=== PATIENT | male | born 1970 | race Caucasian/White ===

== ENCOUNTER 2019-06-17 10:15 | Emergency (ER) | payer OTHER | END 2019-06-17 13:52 | disposition home or self-care (01) | LOC: FER 10:15 ==

== ENCOUNTER 2019-07-07 08:41 | Emergency (ER) | payer OTHER ==
--- NOTE | 2019-07-07 08:46 | PDOC ---
History of Present Illness - General Chief Complaint: Shortness of Breath Stated Complaint: cough Time Seen by Provider: 07/07/19 08:46 History Source: Patient Exam Limitations: No Limitations - History of Present Illness Initial Comments: 07/07/19 08:47 Mr Arechiga is a 48 yo M h/o liver cirrhosis 2/2 alcohol abuse, s/p doner liver transplant on Cyclosporine on Nov 23, 2015 c/b biliary duct stenosis and stenting, pancreatitis. Previous history of fluid overloading, b/l pleural effusion s/p RVATS and pleurodesis on 12/13/14, hernia repair in 2016 . He presents today with a complaint of cough Pt reports that he began having a cough 5 days ago, Fever of 101 4 days ago He rested and actually began to feel a bit better However, yesterday, he began to have shortness of breath He describes a feeling of chest tightness and an inability to take a full breath , his breathing feels "Restricted" Since his transplant, he has had recurrent pulmonary infections His most recent infection was 4-5 weeks ago (treated with doxy and albuterol) No recent travel No ill contacts No arthropod bites Past Medical History: as documented in EMR/HPI Social history: Lives with family. No tobacco, ETOH or drug use. Surgical history: as documented in EMR - liver transplant, biliary stent, VATS, umbilical hernia Meds: as documented in EMR Allergies: latex, ambien, Prograf/Cellcept --> "I went crazy, I could not move my legs" Family history: noncontributory PMD: Dr Aleman Wood Mechanist: Dr Wood/Liz ([facility]) 07/07/19 09:06 ROS: GENERAL/CONSTITUTIONAL: Yes: fever No: chills, weakness HEAD, EYES, EARS, NOSE AND THROAT: No: change in vision, ear pain, discharge, sore throat, throat swelling. CARDIOVASCULAR: No: chest pain, lightheadedness, palpitations, syncope RESPIRATORY: Yes: shortness of breath, wheezing, cough No:hemoptysis, stridor. GASTROINTESTINAL: No: nausea, vomiting, diarrhea, abdominal pain GENITOURINARY: No: dysuria, hematuria, frequency, urgency, flank pain. MUSCULOSKELETAL: No: back pain, myalgias, arthralgias SKIN: No: rash or easy bruising. NEUROLOGIC: No: headache, vertigo, paresthesias, weakness ENDOCRINE: No: unexplained weight gain or loss HEMATOLOGIC/LYMPHATIC: No: anemia, easy bleeding, swelling nodes. PE: GENERAL: The patient is in no acute distress. HEAD: Normal EYES: PERRLA, EOMI, sclera anicteric, conjunctiva clear. ENT: Ears normal, nares patent, oropharynx clear without exudates. Moist mucous membranes. NECK: Normal range of motion, supple without lymphadenopathy LUNGS: Rhonchi, Wheezing in all lung corona on expiration HEART:Regular rate and rhythm, normal S1 and S2 without murmur ABDOMEN: Soft, nontender, normoactive bowel sounds. No guarding, no rebound. EXTREMITIES: Normal range of motion, no edema. NEUROLOGICAL: Cranial nerves II through XII grossly intact. Normal speech. No focal neurological deficits. MUSCULOSKELETAL: Back non-tender to palpation SKIN: Right upper arm, 2 circular bruises noted Past History - Past Medical History Allergies/Adverse Reactions: Allergies Allergy/AdvReac Type Severity Reaction Status Date / Time latex Allergy Verified 06/17/19 10:23 zolpidem tartrate Allergy Verified 06/17/19 10:23 [From Ambien] LATEX BANDAGES Allergy Mild BURNING Uncoded 06/17/19 10:23 SENSATION Home Medications: Ambulatory Orders Amlodipine Besylate [Norvasc -] 10 mg PO HS 06/17/19 Aspirin [ASA -] 325 mg PO DAILY 06/17/19 Cyclosporine [Sandimmune (Nf)] 125 mg PO BID 06/17/19 Hydralazine HCl 25 mg PO BID 06/17/19 Pantoprazole Sodium [Protonix] 40 mg PO DAILY 06/17/19 Pravastatin Sodium 10 mg PO HS 06/17/19 Ursodiol [Actigall] 300 mg PO TID 06/17/19 Albuterol 0.083% Nebulizer Fiona [Ventolin 0.083% Nebulizer Soln -] 1 neb NEB Q6H #30 vial 07/07/19 Doxycycline Hyclate [Vibramycin -] 100 mg PO BID #20 capsule 07/07/19 Nebulizer and Compressor [[place] Choice Nebulizer] 1 each MC TID PRN #1 each 02/19 HTN: No Liver Disease: Yes (CIRRHOSIS) - Surgical History Abdominal Surgery: Yes (PYLORIC STENOSIS BABY,UMB.HERNIA) - Suicide/Smoking/Psychosocial Hx Smoking History: Never smoked Have you smoked in the past 12 months: No Number of Cigarettes Smoked Daily: 0 Hx Alcohol Use: Yes (last drink may 2014) Drug/Substance Use Hx: Yes Substance Use Type: Cocaine Hx Substance Use Treatment: No ED Treatment Course - LABORATORY CBC & Chemistry Diagram: 07/07/19 11:06 07/07/19 11:06 Medical Decision Making - Medical Decision Making 07/07/19 09:15 48 yo M h/o cirrhosis s/p liver transplantation on Cyclosporine presenting with a cough and wheezing x 5 days Fever was 4 days ago DD: Bronchitis, Pneumonia, Asthma/reactive airways, Pleural effusion, Will do: CXR Albuterol neb Will contact pt service parts coordinator - [employer] 07/07/19 09:46 Returned from X ray Decreased rhonchi and wheezing Continues to feel tight Will give another Albuterol 07/07/19 10:36 CXR - nml After 2nd neb, pt states he feels better Lung examination continues to reveal expiratory rhonchi in the RLL Will give Doxy Will order neb machine and Albuterol (pt states MDI is not helping) 07/07/19 10:39 Case reviewed with [employer] Was last seen in April At that time TBili was a little high (1.6) Had MRCP that was nml LFTs nml Agreed with Doxy and Neb Laboratory Tests 07/07/19 07/07/19 07/07/19 11:06 11:06 11:06 WBC 2.4 L Hgb 12.9 Hct 38.8 Plt Count 165 BUN 20.0 H Creatinine 1.1 Total Bilirubin 1.0 AST 41 H ALT 39 Lipase 225 Pt service parts coordinator asked that patient come in to their offices to see them Pt will be doing this He was given copies of his labs and x ray Clinical impression: bronchitis, initial presentation *DC/Admit/Observation/Transfer Diagnosis at time of Disposition: Cough - Discharge Dispostion Disposition: HOME Condition at time of disposition: Stable Decision to Admit order: No - Prescriptions Prescriptions: Albuterol 0.083% Nebulizer Fiona [Ventolin 0.083% Nebulizer Soln -] 1 neb NEB Q6H #30 vial Doxycycline Hyclate [Vibramycin -] 100 mg PO BID #20 capsule Nebulizer and Compressor [[place] Choice Nebulizer] 1 each MC TID PRN #1 each PRN Reason: Wheezing - Referrals - Patient Instructions Printed Discharge Instructions: DI for Cough -- Adult, DI for Acute Bronchitis Additional Instructions: Mr. Arechiga Thank you for coming in to the ER Your xray did not obviously show a pneumonia but your lung examination and the cough suggests an infection Therefore, we will start antibiotics Please monitor for fevers Please be sure to follow up with your service parts coordinator If you worsen - high fevers, worsening shortness of breath, please come back and see us in the ER - Post Discharge Activity
[2019-07-07] MEDS ORDERED: ALBUTEROL SO4 0.083% IH SOL 2.5 MG/3 ML VIAL.NEB. NEB ONE ×4 (09:03→10:01)
[2019-07-07 09:14] VITALS: BP 143/93; PULSE 101; TEMP 98.7; BMI 38.5
[2019-07-07 11:29] LABS: HEMATOCRIT 38.8 % (35.4-49); HEMOGLOBIN 12.9 GM/dl (11.7-16.9); MCH 32.7 pg (25.7-33.7); MCHC 33.3 g/dl (32.0-35.9); MEAN CELL VOLUME 98.2 fl (80-96); MEAN PLT VOLUME 7.5 fl (7.5-11.1); PLATELET COUNT 165 K/MM3 (134-434); RBC 3.95 M/mm3 (4.00-5.60); RDW 13.1 % (11.9-15.9); WHITE BLOOD COUNT 2.4 K/mm3 (4.0-10.8)
[2019-07-07 11:37] LABS: ALBUMIN 3.9 g/dl (3.4-5.0); CALCIUM 8.9 mg/dl (8.5-10); CREATININE 1.1 mg/dl (0.55-1.3); POTASSIUM 3.9 mmol/L (3.5-5.1); TOT PROT 7.5 g/dl (6.4-8.2)
[2019-07-07 13:18] LABS: PLATELET ESTIMATE ADEQUATE
== END 2019-07-07 12:11 | disposition home or self-care (01) ==
LOC: FER 08:41
PROC: 3E0F7GC Introduction of Other Therapeutic Substance into Respiratory Tract, Via Natural or Artificial Opening (ICD-10-PCS; principal; 2019-07-07)
DX: R05 Cough (principal); Z94.4 Liver transplant status; K74.60 Unspecified cirrhosis of liver
CPT/HCPCS: 36415; 71046-TC-FY; 80053; 83690; 85025; 94640; 99282-25

== ENCOUNTER 2019-08-12 10:20 | Emergency (ER) | payer OTHER ==
[2019-08-12 10:29] VITALS: BMI 39.5
--- NOTE | 2019-08-12 11:29 | PDOC ---
Attending Attestation - Resident Resident Name: JimenezTrey - ED Attending Attestation I have performed the following: I have examined & evaluated the patient, The case was reviewed & discussed with the resident, I agree w/resident's findings & plan, Exceptions are as noted - HPI HPI: 08/14/19 21:35 Patient complains of productive cough and low-grade fever. He is status post liver transplant for cirrhosis, thought due to alcohol abuse, and is maintained on cyclosporine. - Physicial Exam PE: 08/14/19 21:35 Physical exam: Low-grade fever, otherwise vital signs stable. Specifically, respiratory rate is normal, respirations are unlabored, and oxygen saturation is normal. Alert and oriented well-developed nourished in no acute distress. HEENT is clear Lungs are clear to auscultation CV regular without murmur rub or gallop Abdomen soft nontender without mass organomegaly Extremities no CCE. Skin without lesions or sign of infection. Neurological intact CBC, chemistries, chest x-ray without significant abnormalities - Medical Decision Making 08/14/19 21:37 Assessment: Rule out pneumonia and immunocompromise patient Plan: Chest x-ray is clear. CBC and chemistries without significant abnormality. Symptomatic treatment and close follow-up as recommended.
--- NOTE | 2019-08-12 11:35 | PDOC ---
History of Present Illness - General Chief Complaint: Respiratory Stated Complaint: COUGH, FEVER Time Seen by Provider: 08/12/19 11:11 Past History - Past Medical History Allergies/Adverse Reactions: Allergies Allergy/AdvReac Type Severity Reaction Status Date / Time latex Allergy Verified 08/12/19 10:21 tacrolimus Allergy Verified 08/12/19 10:21 zolpidem tartrate Allergy Verified 08/12/19 10:21 [From Ambien] LATEX BANDAGES Allergy Mild BURNING Uncoded 08/12/19 10:21 SENSATION Home Medications: Ambulatory Orders Amlodipine Besylate [Norvasc -] 10 mg PO HS 06/17/19 Aspirin [ASA -] 325 mg PO DAILY 06/17/19 Cyclosporine [Sandimmune (Nf)] 125 mg PO BID 06/17/19 Hydralazine HCl 25 mg PO BID 06/17/19 Pantoprazole Sodium [Protonix] 40 mg PO DAILY 06/17/19 Pravastatin Sodium 10 mg PO HS 06/17/19 Ursodiol [Actigall] 300 mg PO TID 06/17/19 Cholecalciferol (Vitamin D3) [Vitamin D3] 3,000 unit PO DAILY 08/12/19 [place]-3/Dha/Epa/Fish Oil [Fish Oil 1,000 mg Softgel] 1 each PO DAILY 08/12/19 COPD: No HTN: No Hypercholesterolemia: Yes Liver Disease: Yes (CIRRHOSIS) Other medical history: VACA'S SYNDROME - Surgical History Abdominal Surgery: Yes (PYLORIC STENOSIS BABY,UMB.HERNIA, LIVER TRANSPLANT) - Psycho Social/Smoking Cessation Hx Smoking History: Never smoked Have you smoked in the past 12 months: No Number of Cigarettes Smoked Daily: 0 Information on smoking cessation initiated: No Hx Alcohol Use: Yes (last drink may 2014) Drug/Substance Use Hx: Yes Substance Use Type: Cocaine Hx Substance Use Treatment: No *Physical Exam - Vital Signs Last Vital Signs Temp Pulse Resp BP Pulse Ox 101.6 F H 94 H 18 126/91 98 08/12/19 10:20 08/12/19 10:20 08/12/19 10:20 08/12/19 10:20 08/12/19 10:20 ED Treatment Course - LABORATORY CBC & Chemistry Diagram: 08/12/19 12:00 08/12/19 12:00 Medical Decision Making - Medical Decision Making 08/12/19 12:26 49M h/o liver tx 2016 on cyclosporine presenting with 1 day of fevers, chills, joint aches. Has a productive cough, patient has not seen sputum. Endorses congestion. Denies runny nose and sore throat. Denies N/V/D, urinary frequency, dysuria. Denies sick contacts. Also complaining of a deep constant pain on the right lower costal margin that appeared with the fever. Pain resolves w/ tylenol. PMH: HTN, as above MEDs: see chart Allergies reviewed ROS: CONSTITUTIONAL: + F/C HEENT: Denies headache, lightheadedness, dizziness. Denies sore throat, rhinorrhea. RESP: + cough, see hpi. Denies SOB CARD: Denies chest pain, palpitations GI: Denies N / V / D, abdominal pain, bloody stool, inability to tolerate PO : Denies dysuria, frequency MSK: + myalgias INTEGUMENTARY: Denies rash NEURO: Denies numbness, tingling, weakness PE: febrile GEN: AAOx3, cooperative, NAD, nontoxic HEENT: NC/AT, EOMI, PERRLA, anicteric. No facial asymmetry. Moist mucous membranes, no posterior oropharynx erythema or exudates noted. Normal voice. Supple neck w/ FROM. CV: S1/S2, RRR, no m/r/g. Pain described in HPI nonreproducible. LUNG: CTAB, no wheezes, crackles, rales, rhonchi. GI: soft, ndnt, +BS, no guarding, no rebound. EXTREMITIES: No obvious deformities of all extremities. SKIN: warm, dry, normal turgor PSYCH: normal mood and affect MDM 49M s/p liver tx 2016 on chronic immunosuppression presenting with fevers/chills /joint pain and cough. DDx - influenza, PNA, UTI, URI cbc, cmp, rapid flu, ua, uc, cxr fever ctrl, fluids CXR report - IMPRESSION: No evidence of active pulmonary disease. Questionable density projected over the right sixth rib. This may be osteogenic in nature or may represent a pulmonary nodule and CT correlation is recommended as clinically indicated. No focal infiltrate identified. - labs reviewed and reassuring - unclear source of fever - obtained liver/RUQ ultrasound to eval for abscess US report - Limited examination, as described above. Patient is status post liver transplant. Echogenic liver suggestive of fatty infiltration versus hepatocellular disease. Poorly visualized main portal vein, inferior vena cava and abdominal aorta with flow documented. Common bile duct was not seen. Gallbladder was not seen. Limited visualization of the right kidney that appears grossly unremarkable. Correlate clinically for further evaluation. Patient feeling much better on reassessment Most likely a viral URI Discharged home with return precautions and close PCP follow up. Patient provided with lab results and imaging reports; informed about following up regarding CXR findings. 1 Discharge - Discharge Information Problems reviewed: Yes Clinical Impression/Diagnosis: Viral upper respiratory illness Condition: Stable Disposition: HOME - Admission No - Follow up/Referral Referrals: Don Aleman MD [Primary Care Provider] - - Patient Discharge Instructions Patient Printed Discharge Instructions: Common Cold Additional Instructions: You were seen and treated in the Emergency Department. Please take tylenol as directed on the bottle for fever control. Be sure to stay hydrated. Please follow up with your primary care doctor and transplant doctors in the next 1-2 days. Return to the ED IMMEDIATELY if you experience any of the following: - Increasing fever - Abdominal pain, diarrhea, nausea/vomiting - shortness of breath, chest pain - Yellowing of the skin - ANYTHING that concerns you - Post Discharge Activity
[2019-08-12] MEDS ORDERED: ACETAMINOPHEN 500 MG TABLET (FP) PO ONE (11:36)
[2019-08-12] MEDS ORDERED: ACETAMINOPHEN 325 MG TABLET (FP) ONE (11:41)
[2019-08-12 12:25] LABS: BASO % 0.8 % (0-2.0); HEMOGLOBIN 13.3 GM/dl (11.7-16.9)
[2019-08-12] MEDS ORDERED: SODIUM CHLORIDE 0.9% 500 ML INFUS.BAG IV ONE (12:25)
[2019-08-12 12:29] LABS: EOS % 1.4 % (0-4.5); HEMATOCRIT 38.7 % (35.4-49); LYMPH % 5.9 % (8-40); MCH 34.3 pg (25.7-33.7); MCHC 34.4 g/dl (32.0-35.9); MEAN CELL VOLUME 99.8 fl (80-96); MEAN PLT VOLUME 8.2 fl (7.5-11.1); MONO % 6.6 % (3.8-10.2); NEUT % 85.3 % (42.8-82.8); PLATELET COUNT 229 K/MM3 (134-434); RBC 3.88 M/mm3 (4.00-5.60); RDW 13.2 % (11.9-15.9); WHITE BLOOD COUNT 9.5 K/mm3 (4.0-10.8)
[2019-08-12 12:46] LABS: BILIRUBIN,TOTAL 1.9 mg/dl (0.2-1); CREATININE 1.1 mg/dl (0.55-1.3); POTASSIUM 3.9 mmol/L (3.5-5.1); TOT PROT 7.9 g/dl (6.4-8.2)
[2019-08-12 14:25] VITALS: BP 113/78; PULSE 86; TEMP 99.8
== END 2019-08-12 16:31 | disposition home or self-care (01) ==
LOC: FER 10:20
PROC: 3E0337Z Introduction of Electrolytic and Water Balance Substance into Peripheral Vein, Percutaneous Approach (ICD-10-PCS; principal; 2019-08-12)
DX: J06.9 Acute upper respiratory infection, unspecified (principal); E78.00 Pure hypercholesterolemia, unspecified; K74.60 Unspecified cirrhosis of liver; K22.70 Barrett's esophagus without dysplasia; Z91.040 Latex allergy status; Z88.8 Allergy status to other drugs, medicaments and biological substances; Z79.82 Long term (current) use of aspirin
CPT/HCPCS: 36415; 71046-TC-FY; 76705-TC; 80053; 81003; 85025; 87086; 87804; 99284-25

== ENCOUNTER 2022-03-02 15:17 | Emergency (ER) | payer OTHER ==
[2022-03-02 15:49] VITALS: BP 166/107; PULSE 116; TEMP 101; BMI 44.6
[2022-03-02] MEDS ORDERED: IBUPROFEN 600 MG TABLET (FP) PO ONE ×2 (16:06→16:37)
[2022-03-02] MEDS ORDERED: SODIUM CHLORIDE 0.9% 500 ML INFUS.BAG IV ONE (16:06)
[2022-03-02] MEDS ORDERED: ACETAMINOPHEN 325 MG TABLET (FP) PO ONE (16:06)
[2022-03-02] MEDS ORDERED: ACETAMINOPHEN 325 MG TABLET (FP) ONE (16:38)
[2022-03-02 17:08] LABS: BASO % 0.7 % (0-2.0); EOS % 0.1 % (0-4.5); HEMATOCRIT 35.8 % (35.4-49); HEMOGLOBIN 12.3 GM/dL (11.7-16.9); LYMPH % 3.9 % (8-40); MCH 32.5 pg (25.7-33.7); MCHC 34.3 g/dl (32.0-35.9); MEAN CELL VOLUME 94.7 fl (80-96); MEAN PLT VOLUME 7.6 fl (7.5-11.1); MONO % 8.6 % (3.8-10.2); NEUT % 86.7 % (42.8-82.8); PLATELET COUNT 184 10^3/uL (134-434); RBC 3.78 M/mm3 (4.00-5.60); RDW 13.1 % (11.9-15.9); WHITE BLOOD COUNT 8.9 K/mm3 (4.0-10.0)
[2022-03-02 17:26] LABS: BLOOD UREA NITROGEN 17.1 mg/dL (7-18); CALCIUM 8.6 mg/dL (8.5-10.1)
[2022-03-02 17:29] LABS: CREATININE 1.2 mg/dL (0.55-1.3)
[2022-03-02 17:31] LABS: BILIRUBIN,TOTAL 1.6 mg/dL (0.2-1); TOT PROT 6.5 g/dl (6.4-8.2)
[2022-03-03 18:12] LABS: SARS-CoV-2 NAA Not Detected (Not Detected)
== END 2022-03-02 19:07 | disposition home or self-care (01) ==
LOC: JER 15:17
DX: R50.9 Fever, unspecified (principal); J18.9 Pneumonia, unspecified organism
CPT/HCPCS: 36415; 71046-TC-FY; 80053; 85025; 87804; 87807; 99283-25; C9803-CS; U0003; U0005

== ENCOUNTER 2022-04-08 10:17 | Emergency (ER) | payer OTHER ==
[2022-04-08 10:31] VITALS: BMI 44.7
[2022-04-08] MEDS ORDERED: ACETAMINOPHEN 1000 MG/100 ML BAG IVPB ONE (11:06)
[2022-04-08] MEDS ORDERED: SODIUM CHLORIDE 0.9% 500 ML INFUS.BAG IV ONE (11:06)
[2022-04-08] MEDS ORDERED: ACETAMINOPHEN INJECTION 100 ML IVPB ONE ×2 (11:33→11:51)
[2022-04-08 13:30] VITALS: BP 137/82; PULSE 87; TEMP 98.9
== END 2022-04-08 14:08 | disposition home or self-care (01) ==
LOC: JER 10:17
PROC: 3E0333Z Introduction of Anti-inflammatory into Peripheral Vein, Percutaneous Approach (ICD-10-PCS; principal; 2022-04-08)
DX: R11.0 Nausea (principal); R05.1 Acute cough
CPT/HCPCS: 0241U-QW; 99284-25